=== PATIENT | male | born 1950 | race Caucasian/White ===

== ENCOUNTER → 2024-03-11 09:50 | Outpatient (REF) | payer OTHER, SELFPAY | LOC: HWLAB 09:50 | PROVIDERS: ATTENDING PHYSICIAN Specialist; FAMILY PHYSICIAN Internal Medicine | DX: C61 Malignant neoplasm of prostate (principal); N62 Hypertrophy of breast | CPT/HCPCS: 36415; 84153 ==

== ENCOUNTER → 2024-04-03 13:20 | Outpatient (REF) | payer OTHER, SELFPAY | LOC: HWRAD 13:20 | PROVIDERS: ATTENDING PHYSICIAN Nurse Practitioner Adult Health; FAMILY PHYSICIAN Internal Medicine | DX: Z87.891 Personal history of nicotine dependence (principal) | CPT/HCPCS: 71271 ==

== ENCOUNTER 2024-04-04 13:54 | Emergency (ER) | payer OTHER, SELFPAY ==
[2024-04-04 14:05] VITALS: BP 166/126
[2024-04-04 14:29] LABS: Urine Albumin Trace (Neg - Trace); Urine Bilirubin Negative (Negative); Urine Character Clear (Clear); Urine Color Yellow; Urine Glucose Negative (Negative); Urine Ketone Trace (Negative); Urine Leukocyte Trace (Negative); Urine Nitrite Negative (Negative); Urine Occult Blood 4+ (Negative); Urine Urobilinogen Negative (Neg - 1+)
[2024-04-04 14:36] LABS: % Basophils 0.9 % (0-2); % Eosinophils 1.4 % (0-6); % Immature Granulocytes 0.3 % (0-0.5); % Lymphocytes 26.8 % (20.5-51.1); % Monocytes 7.9 % (1.7-9.3); % Neutrophils 62.7 % (42.2-75.2); Absolute Basophils 0.1 10^3/uL (0-0.2); Absolute Eosinophils 0.1 10^3/uL (0-0.7); Absolute Lymphocytes 2.1 10^3/uL (1.2-3.4); Absolute Monocytes 0.6 10^3/uL (0.1-0.6); Absolute Neutrophils 4.9 10^3/uL (1.4-6.5); Hematocrit 47.5 % (39.0-52.0); Hemoglobin 16.5 g/dL (13.0-18.0); Mean Corp Hgb Conc. 34.7 g/dL (33.0-37.0); Mean Corpuscular Hgb 31.7 pg (27.0-31.0); Mean Corpuscular Volume 91.3 fL (80.0-94.0); Mean Platelet Volume 9.5 fL (7.4-10.4); Nucleated Red Blood Cells % 0 % (-); Platelet Count 254 10^3/uL (130-400); Red Cell Dist. Width 12.6 % (11.5-14.5); White Blood Cell Count 7.9 10^3/uL (4.8-10.8)
[2024-04-04 14:40] LABS: Urine Calcium Oxalate Crystals Present
[2024-04-04 14:41] VITALS: BMI 25.5
[2024-04-04 14:41] LABS: Urine Bacteria Few (Negative); Urine Red Blood Cell 16-20 /HPF (0-2)
--- NOTE | 2024-04-04 14:45 | EDRN ---
Balaji Wu PA in to see pt.
[2024-04-04 14:47] VITALS: BP 189/110
[2024-04-04 14:48] LABS: ALT (SGPT) 29 U/L (0-50); AST (SGOT) 30 U/L (17-59); Albumin 4.9 g/dl (3.5-5.0); Alkaline Phosphatase 83 U/L (38-126); Blood Urea Nitrogen 14 mg/dl (9-20); Calcium 10.1 mg/dl (8.4-10.2); Carbon Dioxide 28 mmol/L (22-30); Chloride 103 mmol/L (98-107); Estimated Creatinine Clearance 62 ml/min; Glucose 111 mg/dl (70-99); Potassium 4.2 mmol/L (3.5-5.1); Sodium 140 mmol/L (135-145); Total Bilirubin 0.7 mg/dl (0.2-1.3); Total Protein 7.5 g/dl (6.3-8.2); eGFR > 60.00
[2024-04-04] MEDS: MORPHINE SULFATE 4 MG IV (14:58)
--- NOTE | 2024-04-04 15:11 | ED.GENMED ---
History of Present Illness
<Chito Wu PA-C - Last Filed: 04/04/24 15:18>
General
Chief Complaint: Abdominal Pain
Source: patient
Time Seen by Provider: 04/04/24 14:36
History of Present Illness
History of Present Illness:
73-year-old male with past medical history of AAA, hypertension, hyperlipidemia, COPD, previous non-small cell lung cancer presenting to the emergency department for evaluation of lower abdominal pain that started approximately an hour and a half
prior to arrival, initially within the right lower quadrant to right flank but now across the lower abdomen and accompanied with lower extremity generalized weakness and mild nausea. Patient states that prior to the symptoms starting today he was
in his usual state of health. Denies any fevers, chills, rigors, vomiting, bowel changes or current urinary symptoms. States the pain does feel similar to previous kidney stone in the past. Did not take anything for his symptoms prior to arrival.
Patient notes that his AAA is monitored with routine ultrasounds with last being within the year.
Past History
<Chito Wu PA-C - Last Filed: 04/04/24 15:18>
Past History
ED Past Medical History: Cancer (Melanoma. Non-small cell CA), GERD (Duodenal ulcer), HTN, Hypercholesterolemia and Other (AAA)
ED Past Surgical History: Other (Carotid endarterectomy. AAA stent. Kidney surgery. Thoracotomy)
Social History
Tobacco: Former smoker (Quit 2 weeks ago)
Alcohol: Occasional
Drug: None
Personal:
Living: with family
Review of Systems
<Chito Wu PA-C - Last Filed: 04/04/24 15:18>
Review of Systems
All Other Systems: ROS reviewed and negative except as documented in HPI and ROS
Phy Exam
<Chito Wu PA-C - Last Filed: 04/04/24 15:18>
Physical Exam
Physical Exam:
GENERAL: Alert , appears quite uncomfortable
HEAD: NCAT
EYE: Clear conjunctiva
NECK: Supple
ENT: o/p clr, mmm.
CARDIAC: Regular rate and rhythm .
LUNGS: Clear breath sounds bilaterally, no acute respiratory distress, no wheezes/rales/rhonchi
ABDOMEN: Soft, diffusely tender across lower abdomen but worse in the right lower abdomen, no r/g, no cvat
NEUROLOGICAL: Alert and oriented
SKIN: Warm and dry, skin intact.
MUSCULOSKELETAL: well perfused.
PSYCH: Normal and appropriate interaction.
Scores
<Chito Wu PA-C - Last Filed: 04/04/24 15:18>
Heart Failure Risk
Heart Failure Risk Score: Not Applicable
Heart Score for Chest Pain Patients
STEMI patient?: Not applicable
Withdrawal Assessment of Alcohol
Withdrawal Assessment Completed?: Not applicable
Course
<Chito Wu PA-C - Last Filed: 04/04/24 15:18>
Orders/Labs/Results
Orders:
Orders
04/04/24 14:17
Complete Blood Count/With Diff Urgent
Comprehensive Metabolic Panel Urgent
Lipase Urgent
Urinalysis Reflex To Culture Urgent
Date Specimen was Collected: 04/04/24
Time Specimen was Collected: 14:08
Urine Microscopic Reflex Cult Urgent
04/04/24 14:51
CT Angio Abd/Pelvis w/wo IV [CT Abd/pelvis Angio W/wo Iv] Urgent
Comment:
Reason For Exam: known AAA, sudden onset abd pain, hematuria
04/04/24 14:52
Morphine Sulfate 4 mg IV NOW STA
04/04/24 15:54
Ketorolac [Toradol] 15 mg IV NOW STA
04/04/24 15:55
Ketorolac [Toradol] 15 mg .ROUTE .ST-MED ONE
Abnormal Lab Results
04/04/24
14:17
MCH 31.7 H pg
(27.0-31.0)
Glucose 111 H mg/dl
(70-99)
Urine Ketones Trace A
(Negative)
Ur Occult Blood Reflex 4+ A
(Negative)
Leukocyte Esterase Rfl Trace A
(Negative)
Urine RBC 16-20 A /HPF
(0-2)
Urine Bacteria (Reflex) Few A
(Negative)
04/04/24 14:17
04/04/24 14:17
Vital Signs
Initial and Last Documented VS:
Initial Vital Signs
Temp Pulse Resp BP Pulse Ox
98.1 F 91 18 166/126 97
04/04/24 14:05 04/04/24 14:05 04/04/24 14:05 04/04/24 14:05 04/04/24 14:05
Last Documented Vital Signs
Temp Pulse Resp BP Pulse Ox
98.1 F 81 18 191/103 98
04/04/24 14:05 04/04/24 15:51 04/04/24 15:51 04/04/24 15:51 04/04/24 15:51
Washing Machine Assembler consulted with Physician
Washing Machine Assembler consulted with physician?: Yes
Name of Physician Consulted: Dustin
<Papo Sterling, DO - Last Filed: 04/04/24 17:31>
Orders/Labs/Results
Orders:
Orders
04/04/24 14:17
Complete Blood Count/With Diff Urgent
Comprehensive Metabolic Panel Urgent
Lipase Urgent
Urinalysis Reflex To Culture Urgent
Date Specimen was Collected: 04/04/24
Time Specimen was Collected: 14:08
Urine Microscopic Reflex Cult Urgent
04/04/24 14:51
CT Angio Abd/Pelvis w/wo IV [CT Abd/pelvis Angio W/wo Iv] Urgent
Comment:
Reason For Exam: known AAA, sudden onset abd pain, hematuria
04/04/24 14:52
Morphine Sulfate 4 mg IV NOW STA
04/04/24 15:54
Ketorolac [Toradol] 15 mg IV NOW STA
04/04/24 15:55
Ketorolac [Toradol] 15 mg .ROUTE .STK-MED ONE
Abnormal Lab Results
04/04/24
14:17
MCH 31.7 H pg
(27.0-31.0)
Glucose 111 H mg/dl
(70-99)
Urine Ketones Trace A
(Negative)
Ur Occult Blood Reflex 4+ A
(Negative)
Leukocyte Esterase Rfl Trace A
(Negative)
Urine RBC 16-20 A /HPF
(0-2)
Urine Bacteria (Reflex) Few A
(Negative)
04/04/24 14:17
04/04/24 14:17
Vital Signs
Initial and Last Documented VS:
Initial Vital Signs
Temp Pulse Resp BP Pulse Ox
98.1 F 91 18 166/126 97
04/04/24 14:05 04/04/24 14:05 04/04/24 14:05 04/04/24 14:05 04/04/24 14:05
Last Documented Vital Signs
Temp Pulse Resp BP Pulse Ox
98.1 F 81 18 191/103 98
04/04/24 14:05 04/04/24 15:51 04/04/24 15:51 04/04/24 15:51 04/04/24 15:51
<Chito Wu PA-C - Last Filed: 04/04/24 15:18>
MDM/Problems Addressed
Differential Diagnosis Includes:
Renal/ureteral colic, AAA complication, appendicitis, urinary tract infection
MDM/Problems Addressed:
73-year-old male presenting emergency department for evaluation of sudden onset right-sided abdominal pain earlier today, now diffuse lower abdomen. Patient appears significantly uncomfortable. He is hypertensive. Complaining of weakness to lower
legs. Given his history of known AAA I do have concern for possible AAA rupture. I reviewed his records and he last had a aortic ultrasound done in August which showed a 3 cm x 3 cm aortic aneurysm with aortic stent graft visualized. Decision
was ultimately made to obtain CT angio of the abdomen and pelvis to evaluate patient's aneurysm. It is certainly possible this could all be related to renal/ureteral colic. Labs have been initiated by nursing staff and urinalysis does show 4+
microscopic hematuria. No current signs of urinary tract infection. Disposition and treatment plan pending.
<Chito Wu PA-C - Last Filed: 04/04/24 15:18>
*Pulse Oximetry
Patient hypoxic: no
Data Reviewed
Review of Other/Old Records Reveals: Labs, Records and Radiology Studies
<Papo Sterling DO - Last Filed: 04/04/24 17:31>
*Radiology
Radiology exam reviewed: preliminary read by ED provider (Dino coleman noted)
*Critical Care Note
Total Time (30-74mins, 75-104mins- exclusive of procedures): Not Applicable
Data Reviewed
Source: patient
Prescriptions/Medications Considered But Not Given:
considered abx but no WBC or signs of infection in UA
ED Attending Note
<Chito Wu PA-C - Last Filed: 04/04/24 15:18>
-
Portions of this chart may have been created with voice recognition software.� Occasional wrong word or��sound alike� substitutions may have occurred due to the inherent limitations of voice recognition software.
<DO Kirby Werner Last Filed: 04/04/24 17:31>
ED Attending Note
Patient seen and examined by attending physician: Yes
I performed the substantive portion of visit, reviewed & personally made and approve the management plan that is documented in note by myself or SHAWN.: Yes
ED Attending Note:
73-year-old male with history of kidney stones presents with acute right-sided pain. Does have a history of vascular pathology as well. CT shows stone with no new vascular pathology. On reassessment patient feels much improved. He is awake and
alert, no respiratory distress. No vomiting. Assessment and plan: Treat with Flomax and outpatient urology follow-up as he is known to Dr. Rosado
Discharge Plan
Departure
Patient Disposition: Home (Routine Discharge)
Date of Disposition: 04/04/24
Time of Disposition: 17:28
Patient with high blood pressure during this ER visit?: Yes
Discharge Problem:
Kidney stone
Instructions: Kidney Stones (DC), BLOOD PRESSURE
Prescriptions:
New
tamsulosin [Flomax] 0.4 mg capsule
0.4 mg PO HS Qty: 20 0RF
No Action
paroxetine HCl 30 MG tablet
15 mg PO BID
atorvastatin 80 MG tablet
80 mg PO QPM Qty: 30 0RF
hydrochlorothiazide 12.5 MG tablet
12.5 mg PO DAILY Qty: 30 0RF
bicalutamide 50 mg Tablet
50 mg PO DAILY
Theragen Tablet
1 tab PO DAILY
aspirin 81 mg Tablet,Delayed Release (Dr/Ec)
81 mg PO DAILY
ascorbic acid (vitamin C) [Vitamin C] 500 mg Tablet
500 mg PO DAILY
nicotine (polacrilex) 4 mg Gum
4 mg BUCCAL Q2HPRN PRN (Reason: smoking )
nicotine 21 mg/24 hr Patch 24 Hour
1 patch TRANSDERMAL DAILY
ibuprofen [Advil] 200 mg Tablet
100 mg PO HS
ibuprofen [Advil] 200 mg Tablet
200 mg PO Q6HPRN PRN (Reason: mild pain)
Referrals:
Yaw Little MD [Family Provider] -
Activity Restrictions/Additional Instructions:
Please see your urologist in the next 3 to 5 days for follow-up and reevaluation. Return immediately for worsening symptoms, fevers, vomiting or any other concerns
Interventions
Interventions:
*Risk Screen - Suicide Last Done: 04/04/24 14:47
*General Assessment Last Done: 04/04/24 14:05
*Neglect/Abuse Screening Last Done: 04/04/24 14:47
ED- Fall Risk Assessment Last Done: 04/04/24 14:47
*ED COVID-19 Vaccine History Last Done: 04/04/24 14:05
QO-Ohvots-Oapsbfgnwm Assessment Last Done: 04/04/24 14:47
Discharge Date and Time
Print Language: AMHARIC
[2024-04-04 15:51] VITALS: BP 191/103
--- NOTE | 2024-04-04 15:57 | EDRN ---
On return from CT scan pt stated pain remained a 04/20 so This RN spoke to Dr. Sterling who received report on pt from Balaji YAO and ordered pt 15 mg of toradol. Pt attempting to use BR at this time.
[2024-04-04 15:58] LABS: Lipase 135 U/L (23-300)
[2024-04-04] MEDS: TORADOL 15 MG IV (16:04)
--- NOTE | 2024-04-04 17:00 | EDRN ---
Pt OOB to BR at this time.
--- NOTE | 2024-04-04 17:25 | EDRN ---
Dr. Sterling in room w/ pt at this time.
[2024-04-04 17:26] VITALS: BP 179/106
[2024-04-04 17:30] VITALS: BP 183/106
== END 2024-04-04 17:46 | disposition home or self-care (01) ==
LOC: EMR 13:54
PROVIDERS: Emergency Medicine; EMERGENCY PHYSICIAN Emergency Medicine; FAMILY PHYSICIAN Internal Medicine
DX: R10.30 Lower abdominal pain, unspecified (principal); R11.0 Nausea; R53.1 Weakness; N20.0 Calculus of kidney; I71.40 Abdominal aortic aneurysm, without rupture, unspecified; I10 Essential (primary) hypertension; E78.00 Pure hypercholesterolemia, unspecified; K21.9 Gastro-esophageal reflux disease without esophagitis; J44.9 Chronic obstructive pulmonary disease, unspecified; Z79.82 Long term (current) use of aspirin; Z85.820 Personal history of malignant melanoma of skin; Z85.118 Personal history of other malignant neoplasm of bronchus and lung; Z87.442 Personal history of urinary calculi; Z87.11 Personal history of peptic ulcer disease; Z87.891 Personal history of nicotine dependence; Z91.030 Bee allergy status
CPT/HCPCS: 99285; 96374; 96375; 74174; 80053; 81003; 81015; 83690; 85025; Q9967

== ENCOUNTER 2024-04-05 18:20 | Inpatient (IN) | payer OTHER, SELFPAY ==
[2024-04-05] VITALS (14 sets, daily range): BP systolic 99–164; BP diastolic 71–103; PULSE 89–102; BMI 26.2
[2024-04-05 13:11] LABS: Glucose - Point of Care 109 mg/dl (70-99)
[2024-04-05 13:45] LABS: % Basophils 0.5 % (0-2); % Eosinophils 1.5 % (0-6); % Immature Granulocytes 0.2 % (0-0.5); % Lymphocytes 19.2 % (20.5-51.1); % Monocytes 8.3 % (1.7-9.3); % Neutrophils 70.3 % (42.2-75.2); Absolute Basophils 0.1 10^3/uL (0-0.2); Absolute Eosinophils 0.2 10^3/uL (0-0.7); Absolute Lymphocytes 2.1 10^3/uL (1.2-3.4); Absolute Monocytes 0.9 10^3/uL (0.1-0.6); Absolute Neutrophils 7.8 10^3/uL (1.4-6.5); Hematocrit 44.7 % (39.0-52.0); Hemoglobin 15.6 g/dL (13.0-18.0); Mean Corp Hgb Conc. 34.9 g/dL (33.0-37.0); Mean Corpuscular Hgb 31.6 pg (27.0-31.0); Mean Corpuscular Volume 90.7 fL (80.0-94.0); Nucleated Red Blood Cells % 0 % (-); Platelet Count 239 10^3/uL (130-400); Red Blood Cell Count 4.93 10^6/uL (4.70-6.10); Red Cell Dist. Width 12.8 % (11.5-14.5); White Blood Cell Count 11.1 10^3/uL (4.8-10.8)
[2024-04-05 13:57] LABS: ALT (SGPT) 24 U/L (0-50); AST (SGOT) 30 U/L (17-59); Albumin 4.3 g/dl (3.5-5.0); Alkaline Phosphatase 78 U/L (38-126); Blood Urea Nitrogen 15 mg/dl (9-20); Calcium 9.6 mg/dl (8.4-10.2); Carbon Dioxide 29 mmol/L (22-30); Chloride 101 mmol/L (98-107); Glucose 104 mg/dl (70-99); Potassium 3.7 mmol/L (3.5-5.1); Sodium 137 mmol/L (135-145); Total Bilirubin 0.9 mg/dl (0.2-1.3); Total Protein 6.7 g/dl (6.3-8.2); eGFR > 60.00
--- NOTE | 2024-04-05 15:22 | ED.GENMED ---
History of Present Illness
<Lebron Hansen PA-C - Last Filed: 04/05/24 17:05>
General
Chief Complaint: Fainting/Passed Out
Source: patient
Exam Limitations: none
Time Seen by Provider: 04/05/24 15:07
History of Present Illness
History of Present Illness:
73-year-old male presents from home after passing out 2 different times today. He was here yesterday diagnosed with a kidney stone. He was treated with Flomax. He took his first dose last evening. He woke up this morning and had breakfast. He
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 She witnessed this. He back up on his own. He laid back down and tried again later and passed out 1
more time. She saw this both times. He denies any preceding chest pain lightheadedness or dizziness. No injury sustained from the falls. He has a history of AAA that is being monitored. He denies abdominal pain leg swelling or calf pain. He
denies any flank pain or residual kidney stone discomfort.
Past History
<Lebron Hansen PA-C - Last Filed: 04/05/24 17:05>
Past History
ED Past Medical History: Cancer (Melanoma. Non-small cell CA), GERD (Duodenal ulcer), HTN, Hypercholesterolemia and Other (AAA)
ED Past Surgical History: Other (Carotid endarterectomy. AAA stent. Kidney surgery. Thoracotomy)
Social History
Tobacco: Former smoker (Quit 2 weeks ago)
Alcohol: Occasional
Drug: None
Personal:
Living: with family
Phy Exam
<Lebron Hansen PA-C - Last Filed: 04/05/24 17:05>
Physical Exam
Physical Exam:
General: Well-appearing male no acute respiratory distress
HEENT: Normocephalic atraumatic
Heart: Regular rate and rhythm no murmurs
Lungs: Clear no wheeze
Abdomen is soft nontender nondistended no guarding or rebound normal bowel
Course
<Lebron Hansen PA-C - Last Filed: 04/05/24 17:05>
Orders/Labs/Results
Orders:
Orders
04/05/24 Breakfast
Regular
At Your Request: Full Participation
Does patient need a safe tray?: No
04/05/24 12:52
ECG [Electrocardiogram (*1)] Urgent
Reason for Study: Syncope
EKG- Treatment ONCE
04/05/24 13:09
CMP [Comprehensive Metabolic Panel] Urgent
Complete Blood Count/With Diff Urgent
04/05/24 15:20
Cardiac Monitoring- Treatment ONCE
Orthostatic VS- Treatment ONCE
0.9% Sodium Chloride 1000 ml [Nss] 1,000 ml IV BOLUS
04/05/24 16:29
Electrocardiogram (*1) Urgent
Reason for Study: Chest Pain
EKG- Treatment ONCE
04/05/24 16:56
Troponin I Urgent
04/05/24 17:15
CT Head W/o Iv Contrast Urgent
Comment:
Reason For Exam: syncope
04/05/24 17:55
Admit/Transfer Patient As Directed
Co-Sign Provider:
Level of Care: Inpatient admission
Assign to:: Telemetry
Physician / Group: Juan Pablo
Diagnosis: Syncope, Obstructing Kidney Stone
Reason for Telemetry: Syncope
Date to Stop Telemetry: 04/07/24
Time to Stop Telemetry: 11:00
Reason for Hospitalization: IVFs, Urology Consult
Expected length of stay greater than two midnights?: Yes
ELOS- Estimated Length of Stay in days: 3
I certify the patient meets the requirements for IP care: Yes
04/05/24 18:02
PRN Pain Medication Management As Directed
May give lesser potent ordered pain med per pt: Yes
preference::
Protocol:: Medication orders for pain may be administered in a
manner that supports deferring to patient preference
when the pt is:
- Requesting an ordered lesser potent pain medication.
Least to most potent pain medications are defined
as: acetaminophen < NSAID < tramadol < opioids
(morphine, oxycodone, hydromorphone).
- Requesting a lesser dose of the same medication IF
ORDERED.
- Requesting a less intrusive route of administration
if both routes are prescribed by the provider (PO <
IV).
04/05/24 18:04
Code Status As Directed
Resuscitation Status: Full Code
04/05/24 19:07
0.9% Sodium Chloride 1000 ml [Nss] 1,000 ml IV 88 mls/hr
Acetaminophen [Tylenol] 650 mg PO Q4HPRN PRN
Atorvastatin [Lipitor] 80 mg PO QPM
04/05/24 19:07
UROLOGY CONSULT Routine
Consulting Provider: Toni Browning
Was physician already notified: Yes
Activity As Directed
Activity Level: Out of Bed- Chair
I&O [Intake/ Output] As Directed
Frequency: q12h
Orthostatic Vital Signs As Directed
Orthostatic VS Frequency: Daily
Pneumatic Compression Sleeves As Directed
Type: Knee high
Strain Urine As Directed
Teds [Anti-embolism (GONZÁLEZ) Hose] As Directed
Type: Knee high
Vital Signs As Directed
Frequency: Per unit guidelines
Ot Eval And Treat Routine
Pt Eval And Treat Routine
Activity Level: Out of Bed- Ad Ghzaal
With Assistance
DX Deep Vein Thrombosis Video Routine
04/05/24 20:00
Paroxetine [Paxil] 15 mg PO BID
04/06/24 07:21
Basic Metabolic Panel IN AM
Complete Blood Count/No Diff IN AM
04/06/24 08:00
Aspirin Low Dose EC [Aspir Low (Enteric Coated)] 81 mg PO DAILY
Bicalutamide [Casodex] 50 mg PO DAILY
Nicotine [Nicoderm Transdermal] 21 mg TRANSDERM DAILY
04/07/24 11:00
DC Protocol for Telemetry ONCE
Abnormal Lab Results
04/05/24
13:09
WBC 11.1 H 10^3/uL
(4.8-10.8)
MCH 31.6 H pg
(27.0-31.0)
Absolute Neuts (auto) 7.8 H 10^3/uL
(1.4-6.5)
Absolute Monos (auto) 0.9 H 10^3/uL
(0.1-0.6)
Lymphocytes % 19.2 L %
(20.5-51.1)
Glucose 104 H mg/dl
(70-99)
POC Glucose 109 H mg/dl
(70-99)
04/05/24 13:09
04/05/24 13:09
Vital Signs
Initial and Last Documented VS:
Initial Vital Signs
Temp Pulse Resp BP Pulse Ox
98.4 F 111 18 113/80 97
04/05/24 12:57 04/05/24 12:57 04/05/24 12:57 04/05/24 12:57 04/05/24 12:57
Last Documented Vital Signs
Temp Pulse Resp BP Pulse Ox
97.8 F 83 16 158/102 95
04/06/24 15:19 04/06/24 15:19 04/06/24 15:19 04/06/24 15:19 04/06/24 15:19
<Martha Lynn MD - Last Filed: 04/06/24 18:26>
Orders/Labs/Results
Orders:
Orders
04/05/24 Breakfast
Regular
At Your Request: Full Participation
Does patient need a safe tray?: No
04/05/24 12:52
ECG [Electrocardiogram (*1)] Urgent
Reason for Study: Syncope
EKG- Treatment ONCE
04/05/24 13:09
CMP [Comprehensive Metabolic Panel] Urgent
Complete Blood Count/With Diff Urgent
04/05/24 15:20
Cardiac Monitoring- Treatment ONCE
Orthostatic VS- Treatment ONCE
0.9% Sodium Chloride 1000 ml [Nss] 1,000 ml IV BOLUS
04/05/24 16:29
Electrocardiogram (*1) Urgent
Reason for Study: Chest Pain
EKG- Treatment ONCE
04/05/24 16:56
Troponin I Urgent
04/05/24 17:15
CT Head W/o Iv Contrast Urgent
Comment:
Reason For Exam: syncope
04/05/24 17:55
Admit/Transfer Patient As Directed
Co-Sign Provider:
Level of Care: Inpatient admission
Assign to:: Telemetry
Physician / Group: Juan Pablo
Diagnosis: Syncope, Obstructing Kidney Stone
Reason for Telemetry: Syncope
Date to Stop Telemetry: 04/07/24
Time to Stop Telemetry: 11:00
Reason for Hospitalization: IVFs, Urology Consult
Expected length of stay greater than two midnights?: Yes
ELOS- Estimated Length of Stay in days: 3
I certify the patient meets the requirements for IP care: Yes
04/05/24 18:02
PRN Pain Medication Management As Directed
May give lesser potent ordered pain med per pt: Yes
preference::
Protocol:: Medication orders for pain may be administered in a
manner that supports deferring to patient preference
when the pt is:
- Requesting an ordered lesser potent pain medication.
Least to most potent pain medications are defined
as: acetaminophen < NSAID < tramadol < opioids
(morphine, oxycodone, hydromorphone).
- Requesting a lesser dose of the same medication IF
ORDERED.
- Requesting a less intrusive route of administration
if both routes are prescribed by the provider (PO <
IV).
04/05/24 18:04
Code Status As Directed
Resuscitation Status: Full Code
04/05/24 19:07
0.9% Sodium Chloride 1000 ml [Nss] 1,000 ml IV 88 mls/hr
Acetaminophen [Tylenol] 650 mg PO Q4HPRN PRN
Atorvastatin [Lipitor] 80 mg PO QPM
04/05/24 19:07
UROLOGY CONSULT Routine
Consulting Provider: Toin Browning
Was physician already notified: Yes
Activity As Directed
Activity Level: Out of Bed- Chair
I&O [Intake/ Output] As Directed
Frequency: q12h
Orthostatic Vital Signs As Directed
Orthostatic VS Frequency: Daily
Pneumatic Compression Sleeves As Directed
Type: Knee high
Strain Urine As Directed
Teds [Anti-embolism (GONZÁLEZ) Hose] As Directed
Type: Knee high
Vital Signs As Directed
Frequency: Per unit guidelines
Ot Eval And Treat Routine
Pt Eval And Treat Routine
Activity Level: Out of Bed- Ad Ghazal
With Assistance
DX Deep Vein Thrombosis Video Routine
04/05/24 20:00
Paroxetine [Paxil] 15 mg PO BID
04/06/24 07:21
Basic Metabolic Panel IN AM
Complete Blood Count/No Diff IN AM
04/06/24 08:00
Aspirin Low Dose EC [Aspir Low (Enteric Coated)] 81 mg PO DAILY
Bicalutamide [Casodex] 50 mg PO DAILY
Nicotine [Nicoderm Transdermal] 21 mg TRANSDERM DAILY
04/07/24 11:00
DC Protocol for Telemetry ONCE
Abnormal Lab Results
04/05/24
13:09
WBC 11.1 H 10^3/uL
(4.8-10.8)
MCH 31.6 H pg
(27.0-31.0)
Absolute Neuts (auto) 7.8 H 10^3/uL
(1.4-6.5)
Absolute Monos (auto) 0.9 H 10^3/uL
(0.1-0.6)
Lymphocytes % 19.2 L %
(20.5-51.1)
Glucose 104 H mg/dl
(70-99)
POC Glucose 109 H mg/dl
(70-99)
04/05/24 13:09
04/05/24 13:09
Vital Signs
Initial and Last Documented VS:
Initial Vital Signs
Temp Pulse Resp BP Pulse Ox
98.4 F 111 18 113/80 97
04/05/24 12:57 04/05/24 12:57 04/05/24 12:57 04/05/24 12:57 04/05/24 12:57
Last Documented Vital Signs
Temp Pulse Resp BP Pulse Ox
97.8 F 83 16 158/102 95
04/06/24 15:19 04/06/24 15:19 04/06/24 15:19 04/06/24 15:19 04/06/24 15:19
<Lebron Hansen PA-C - Last Filed: 04/05/24 17:05>
MDM/Problems Addressed
Differential Diagnosis Includes:
Syncope. Consider arrhythmia versus anemia versus electrolyte abnormality versus side effect of recent Flomax administration. Will check labs EKG and placed on cardiac surgeon. Orthostatic vital signs pending.
<Lebron Hansen PA-C - Last Filed: 04/05/24 17:05>
*Critical Care Note
Total Time (30-74mins, 75-104mins- exclusive of procedures): Not Applicable
<Lebron Hansen PA-C - Last Filed: 04/05/24 17:05>
Update Note
Update Note:
Patient reevaluated. He did develop chest discomfort while he was here. Troponin is ordered. EKG shows sinus rhythm. Patient was orthostatic upon testing however concern for his 2 episodes today are to sudden drop attacks without any preceding
symptoms. There was no preceding lightheadedness or dizziness. He was orthostatic by objective evidence but had no subjective symptoms when we stood him up to his blood pressure. Discussed with emergency room attending. Will keep in hospital for
syncope workup
ED Attending Note
<Lebron Hansen PA-C - Last Filed: 04/05/24 17:05>
-
Portions of this chart may have been created with voice recognition software.� Occasional wrong word or��sound alike� substitutions may have occurred due to the inherent limitations of voice recognition software.
<Martha Lynn MD - Last Filed: 04/06/24 18:26>
ED Attending Note
Patient seen and examined by attending physician: Yes
ED Attending Note:
73-year-old male recently discharged with a kidney stone started on Flomax presents with 2 episodes of syncope today. With both episodes, he was standing speaking to his staff mechanical engineer who is also an RN and was witnessed to fall to the ground with
loss of consciousness that was very short-lived. No post syncopal confusion, incontinence, tongue biting, or other abnormalities. Patient denies any symptoms preceding this and says 'I just dropped'. He denies dizziness, lightheadedness,
numbness, tingling, chest pain, dyspnea, palpitations, or other complaints. On exam, patient neurologically intact, normal gait, well-appearing. Curious that his symptoms that could be concerning for arrhythmia or central neurological event.
Unlikely seizure especially given lack of postevent symptoms. Will check head CT and admit for observation and telemetry monitoring.
Discharge Plan
Departure
Patient Disposition: Admit
Date of Disposition: 04/05/24
Time of Disposition: 17:05
Admit to: Telemetry
Presentation/result/management discussed w/ accepting MD/DO: Hospitalist
Discharge Problem:
Syncope
Interventions
Interventions:
*Risk Screen - Suicide Last Done: 04/05/24 19:46
*General Assessment Last Done: 04/05/24 15:20
*Neglect/Abuse Screening Last Done: 04/05/24 12:57
ED- Fall Risk Assessment Last Done: 04/05/24 15:20
*ED COVID-19 Vaccine History Last Done: 04/05/24 19:46
*Nursing Disposition Last Done: 04/05/24 19:15
ED- Cardiac Assessment Last Done: 04/05/24 15:20
ED- Neurological Assessment Last Done: 04/05/24 15:20
Discharge Date and Time
Discharge Date/Time: 04/05/24 19:15
[2024-04-05] MEDS: NSS 1000 IV ×2 (15:37→19:34)
[2024-04-05 17:29] LABS: Troponin I < 0.012 ng/ml
--- NOTE | 2024-04-05 18:16 | HPS.HSE ---
Addendum entered and electronically signed by Nikhil Almeida MD 04/05/24 18:26:
I saw and examined the patient.
The RECYCLING OPERATIONS MANAGER or PA's note was reviewed and I agree with the note.
Comment:
73 years old male who experienced 2 syncopal episodes, each lasted for a few seconds with no confusion, seizure activity or urinary incontinence. Patient presented to the emergency room yesterday for renal colic was given Flomax. Patient was
noticeably having postural hypotension in the ER. Patient denied nausea, diarrhea or vomiting. He takes diuretic for blood pressure management. No known heart disease. No chest pain. Troponins negative. EKG no acute ischemic changes.
Physical Exam
General: Comfortable and Conversant
HEENT: Anicteric and Moist mucous membranes
Respiratory: Clear and Non Labored Respirations
Cardiac: S1/S2 and Regular Rhythm
GI: Soft and Non Tender
Rectal: No rectal bleeding
Musculoskeletal: No Clubbing, No Cyanosis and No Edema
Skin: Warm and Dry
Neuro: Awake, Alert, Oriented and Nonfocal/grossly intact
Psych: Calm
Syncope likely secondary to Orthostatic Hypotension differential diagnosis includes vasovagal/cardiac arrhythmia. Doubt seizure activity due to lack of confusion, seizure activity.
Patient reported that each syncopal episode lasted few seconds and he woke up and was completely coherent and lucid.
-Discontinue Flomax
-Give IVFs overnight
-Recheck orthostatic VS in AM
-Monitor on Telemetry
-No history of cardiac disease. Negative troponin. EKG, sinus rhythm with no acute ischemic changes.
Obstructing Kidney Stone
Normal renal function. No renal colic at present time.
Patient denies hematuria. History of prostate cancer.
Follow-up with urology recommendation
-Strain Urine
Hx Left Parietal CVA s/p Left Carotid Endarterectomy
-Continue Aspirin
Essential Hypertension
-Hold HCTZ
Hyperlipidemia
-Continue atorvastatin
Depression
-Continue Paxil
Prostate CA
-Continue bicalutamide
Hx AAA Endovascular Repair
Hx NSCLC s/p LLL Wedge Resection
DVT proph:SCDs
Code Status: Full Code
Total time spent to see the patient, examine the patient on the floor, review data and lab results, discuss treatment plan with patient, ER doctor, nursing staff around 75 minutes
Original Note:
Family Physician
-
Family Physician: Yaw Little
Chief Complaint
-
Syncope
History of Present Illness
Patient is a 73 y/o male with a PMH of CVA, HTN, AAA, COPD, lung cancer and prostate cancer who reports to the ED after 2 syncopal episodes. Patient was just at the hospital yesterday for a kidney stone and was prescribed Flomax. He states that he
took the Flomax last night before bed. He woke up this morning and had breakfast without any issues. He went back to bed and when his cleaning lady arrived after going downstairs to talk to her, he passed out. He states he loss consciousness for
10-15 seconds. He felt fine, but went back to bed. Later when he went to speak with her again he passed out for a second time. He states that the length of time between getting out of bed and down the stairs was less than a minute. He denies any
dizziness/lightheadedness, chest pain, palpitations, shortness of breath, vision changes, or calf pain. He denies hitting his head. He denies any history of syncope, arrhythmias, orthostatic hypotension, or seizures. He denies any recent medication
changes except the Flomax. He denies any flank or abdominal pain.
Medical History
Past Medical History
Past Medical History: Reports Other
Additional Past Medical History:
Left Parietal CVA
Essential Hypertension
Hyperlipemia
COPD/Emphysema
Depression
GERD/PUD
BPH
AAA
Non-Small Cell Lung A
Prostate CA
Past Surgical History: Reports Other
Additional Past Surgical History:
Left Lower Lobe Wedge Resection
AAA Endovascular Repair
Left Carotid Endarterectomy
Social History
Tobacco: Former Smoker (Recently quit about 2 weeks ago)
Family History
Family History: Not pertinent
Allergies / Home Medications
Allergies reflects when Allergies were last updated in [facility].
Home Medications with original date entered in [facility]
Allergy/Medication List:
Allergies
Allergy/AdvReac Type Severity Reaction Status Date / Time
bee venom protein (honey bee) Allergy Unknown Verified 04/05/24 13:02
Home Medications
paroxetine HCl 30 mg tablet 15 mg PO BID 10/20/15
atorvastatin 80 mg tablet 80 mg PO QPM ##30 12/21/18
hydrochlorothiazide 12.5 mg tablet 12.5 mg PO DAILY ##30 12/21/18
ascorbic acid (vitamin C) 500 mg tablet (Vitamin C) 500 mg PO DAILY 04/04/24
aspirin 81 mg tablet,delayed release 81 mg PO DAILY 04/04/24
bicalutamide 50 mg tablet 50 mg PO DAILY 04/04/24
ibuprofen 200 mg tablet (Advil) 100 mg PO HS 04/04/24
ibuprofen 200 mg tablet (Advil) 200 mg PO Q6HPRN PRN mild pain 04/04/24
nicotine (polacrilex) 4 mg gum 4 mg buccal Q2HPRN PRN smoking 04/04/24
nicotine 21 mg/24 hr daily transdermal patch 1 patch transdermal DAILY 04/04/24
tamsulosin 0.4 mg capsule (Flomax) 0.4 mg PO HS #20 caps 04/04/24
therapeutic multivitamin 1 tab PO DAILY 04/04/24
Review of Systems
-
A 12 point ROS was completed and negative except as noted: Yes
Constitutional: Denies Fever or Chills
Respiratory: Denies Cough or Trouble Breathing
Cardiac: Reports Syncope; Denies Chest Pain or Palpitations
Physical Exam
Vital Signs
Vital Signs
Temp Pulse Resp BP Pulse Ox
98.4 F 84 14 135/101 97
04/05/24 12:57 04/05/24 17:00 04/05/24 17:00 04/05/24 17:00 04/05/24 17:15
Physical Exam
General: Comfortable and Conversant
HEENT: Anicteric and Moist mucous membranes
Respiratory: Clear and Non Labored Respirations
Cardiac: S1/S2 and Regular Rhythm
GI: Soft and Non Tender
Rectal: Deferred by Provider
Musculoskeletal: No Clubbing, No Cyanosis and No Edema
Skin: Warm and Dry
Neuro: Awake, Alert, Oriented and Nonfocal/grossly intact
Psych: Calm
Laboratory Results
-
04/05/24 13:09
04/05/24 13:09
Laboratory Results
Total Bilirubin 0.9 mg/dl (0.2-1.3) 04/05/24 13:09
AST 30 U/L (17-59) 04/05/24 13:09
ALT 24 U/L (0-50) 04/05/24 13:09
Alkaline Phosphatase 78 U/L (38-126) 04/05/24 13:09
Troponin I < 0.012 ng/ml 04/05/24 16:56
Data Reviewed
-
Lab Data: Labs Reviewed by me
Impression/Plan
-
Syncope likely secondary to Orthostatic Hypotension
-Discontinue Flomax
-Give IVFs overnight
-Recheck orthostatic VS in AM
-Monitor on Telemetry
Obstructing Kidney Stone
-Consult Urology
-Strain Urine
Hx Left Parietal CVA s/p Left Carotid Endarterectomy
-Continue Aspirin
Essential Hypertension
-Hold HCTZ
Hyperlipidemia
-Continue atorvastatin
Depression
-Continue Paxil
Prostate CA
-Continue bicalutamide
Hx AAA Endovascular Repair
Hx NSCLC s/p LLL Wedge Resection
DVT proph:SCDs
Code Status: Full Code
--- NOTE | 2024-04-05 19:30 | PTCARENOTE ---
Pt. admitted through E.D., AAO x 3, SA/ST on monitor, skin intact, call hdz within reach.
[2024-04-06] VITALS (9 sets, daily range): BP systolic 129–169; BP diastolic 83–105; PULSE 77–102; O2SAT 96–97
[2024-04-06] MEDS: NSS 1000 IV (04:48)
[2024-04-06] MEDS: PAXIL 15 MG PO (08:21)
[2024-04-06] MEDS: ASPIR LOW (ENTERIC COATED) 81 MG PO (08:21)
[2024-04-06] MEDS: ORETIC 12.5 MG PO (08:21)
[2024-04-06] MEDS: LIPITOR 80 MG PO (08:21)
[2024-04-06] MEDS: CASODEX 50 MG PO (08:22)
[2024-04-06] MEDS: NICODERM TRANSDERMAL 21 MG TRANSDERM (08:23)
--- NOTE | 2024-04-06 08:31 | W.PN.HOSP.TC ---
Today's Communication/Plan
-
Repeat ortho vital tonight
Resume HCTZ
Add PRN hydralazine
Stop IVF
PT/OT
Assessment / Plan
Assessment / Plan
73 years old male who experienced 2 syncopal episodes, each lasted for a few seconds with no confusion, seizure activity or urinary incontinence. Patient presented to the emergency room yesterday for renal colic was given Flomax. Patient was
noticeably having postural hypotension in the ER. Patient denied nausea, diarrhea or vomiting. He takes diuretic for blood pressure management. No known heart disease. No chest pain. Troponins negative. EKG no acute ischemic changes.
Physical Exam
General: Comfortable and Conversant
HEENT: Anicteric and Moist mucous membranes
Respiratory: Clear and Non Labored Respirations
Cardiac: S1/S2 and Regular Rhythm
GI: Soft and Non Tender
Rectal: No rectal bleeding
Musculoskeletal: No Clubbing, No Cyanosis and No Edema
Skin: Warm and Dry
Neuro: Awake, Alert, Oriented and Nonfocal/grossly intact
Psych: Calm
Syncope likely secondary to Orthostatic Hypotension , noted in ER
DDX includes vasovagal/cardiac arrhythmia. Doubt seizure activity due to lack of confusion, seizure activity.
Patient reported that each syncopal episode lasted few seconds and he woke up and was completely coherent and lucid.
-Discontinue Flomax
-Given IVFs , can stop now
-Recheck orthostatic VS in AM
-Monitor on Telemetry, no arrhythmias.
-No history of cardiac disease. Negative troponin. EKG, sinus rhythm with no acute ischemic changes.
Obstructing Kidney Stone
Normal renal function. No renal colic at present time.
Patient denies hematuria. History of prostate cancer.
Follow-up with urology recommendation
-Strain Urine
Hx Left Parietal CVA s/p Left Carotid Endarterectomy
-Continue Aspirin
Essential Hypertension
-BP is better and SBP around 156 with no orthostatic hypotension, resume HCTZ
Add PRN hydralazine
Hyperlipidemia
-Continue atorvastatin
Depression
-Continue Paxil
Prostate CA
-Continue bicalutamide
Hx AAA Endovascular Repair
Hx NSCLC s/p LLL Wedge Resection
DVT proph:SCDs
Code Status: Full Code
Total time spent to see the patient, examine the patient on the floor, review data and lab results, discuss treatment plan with patient, nursing staff around 55 minutes
Anticipated Discharge: Within 24 hours
Subjective/Interval History
-
Date of Service: April 06, 2024
He feels better
No chest pain
No dizziness upon standing
No sob
Objective Data
-
Labs:
Laboratory Results
04/06/24
07:21
WBC Pending
Hgb Pending
Hct Pending
Plt Count Pending
Sodium Pending
Potassium Pending
Chloride Pending
Carbon Dioxide Pending
BUN Pending
Creatinine Pending
Glucose Pending
Calcium Pending
Vital Signs:
Vital Signs
Temp Pulse Resp BP Pulse Ox
97.4 F 77 20 140/91 96
04/06/24 03:00 04/06/24 03:00 04/06/24 03:00 04/06/24 03:00 04/06/24 03:00
I&O
04/05/24 04/06/24 04/07/24
06:59 06:59 06:59
Intake Total 1240 / 1240
Output Total 450 / 450
Balance 790 / 790
[2024-04-06 09:05] LABS: Hematocrit 41.5 % (39.0-52.0); Hemoglobin 14.3 g/dL (13.0-18.0); Mean Corp Hgb Conc. 34.5 g/dL (33.0-37.0); Mean Corpuscular Hgb 31.2 pg (27.0-31.0); Mean Corpuscular Volume 90.4 fL (80.0-94.0); Mean Platelet Volume 10.2 fL (7.4-10.4); Platelet Count 228 10^3/uL (130-400); Red Blood Cell Count 4.59 10^6/uL (4.70-6.10); Red Cell Dist. Width 12.6 % (11.5-14.5); White Blood Cell Count 8.4 10^3/uL (4.8-10.8)
[2024-04-06 09:34] LABS: Blood Urea Nitrogen 11 mg/dl (9-20); Calcium 8.9 mg/dl (8.4-10.2); Carbon Dioxide 28 mmol/L (22-30); Chloride 105 mmol/L (98-107); Estimated Creatinine Clearance 69 ml/min; Glucose 82 mg/dl (70-99); Potassium 4.5 mmol/L (3.5-5.1); Sodium 137 mmol/L (135-145); eGFR > 60.00
--- NOTE | 2024-04-06 10:57 | W.PN.URO.CBU ---
Today's Communication / Plan
-
No urologic intervention indicated at this time
Patient has not recovered stone
Will need follow up imaging as outpatient if stone is never recovered
Assessment / Plan
-
Partially obstructing 4mm right UVJ stone as diagnosed by CT scan 04/04/24
Small bilateral nephroliths
Bilateral renal cysts
Diagnosis
-
Date of Service: April 06, 2024
-
Patient Diagnosis:
Partially obstructing 4 mm right UVJ stone
Bilateral nephrolithiasis
Bilateral renal cysts
---
Patient developed syncope while taking tamsulosin to enhance chances of stone passage
Subjective
-
No right CVAT
No dysuria
No gross hematuria
No urine frequency
Objective
-
Vital Signs
Temp Pulse Resp BP Pulse Ox
97.6 F 80 16 156/105 95
04/06/24 07:25 04/06/24 07:25 04/06/24 07:25 04/06/24 07:25 04/06/24 07:25
Intake and Output
04/05/24 04/06/24 04/07/24
06:59 06:59 06:59
Intake Total 1240 / 1240
Output Total 450 / 450
Balance 790 / 790
Intake:
Oral fluids 240 / 240
IV fluids (Total) 1000 / 1000
Output:
Urine, Voided 450 / 450
Other:
Number of approximated MODERATE 2
amounts of urine
Laboratory Results
04/06/24 07:21
04/06/24 07:21
Review of Systems
-
Constitutional: No Symptoms
Respiratory: No Symptoms
Cardiac: No Symptoms
Abdomen/GI: No Symptoms
: No Symptoms
Physical Exam
-
General - well developed, well nourished, no acute distress
Abdomen - soft, non-tender, no CVAT
Genitalia - normal
Counseling
-
Cleared for discharge from standpoint
--- NOTE | 2024-04-06 11:44 | CM ---
Patient seen bedside, initial assessment completed. Patient resides with his in a multiple story home, no steps to enter. Patient denies the use of DME, denies VN or SNF history. Patient confirms PCP Yaw Little, [facility] in
[place], confirms [facility] through [facility]. Patient denies food, housing/utility, transportation insecurities at home. CM will continue to follow for all discharge planning needs.
Plan; home no needs.
[2024-04-06] MEDS: ROXICODONE 5 MG PO ×2 (18:37→22:53)
[2024-04-07] VITALS (7 sets, daily range): BP systolic 98–160; BP diastolic 71–102; PULSE 86–115
[2024-04-07] MEDS: TYLENOL 650 MG PO (01:14)
--- NOTE | 2024-04-07 08:35 | W.PN.HOSP.TC ---
Today's Communication/Plan
-
Compression stocking/ Tubigrip
Echo in am
Serum cortisol in AM
Assessment / Plan
Assessment / Plan
73 years old male who experienced 2 syncopal episodes, each lasted for a few seconds with no confusion, seizure activity or urinary incontinence. Patient presented to the emergency room yesterday for renal colic was given Flomax. Patient was
noticeably having postural hypotension in the ER. Patient denied nausea, diarrhea or vomiting. He takes diuretic for blood pressure management. No known heart disease. No chest pain. Troponins negative. EKG no acute ischemic changes.
Physical Exam
General: Comfortable and Conversant
HEENT: Anicteric and Moist mucous membranes
Respiratory: Clear and Non Labored Respirations
Cardiac: S1/S2 and Regular Rhythm
GI: Soft and Non Tender
Rectal: No rectal bleeding
Musculoskeletal: No Clubbing, No Cyanosis and No Edema
Skin: Warm and Dry
Neuro: Awake, Alert, Oriented and Nonfocal/grossly intact
Psych: Calm
Syncope likely secondary to Orthostatic Hypotension , noted in hospital
DDX includes vasovagal/cardiac arrhythmia. Doubt seizure activity due to lack of confusion, seizure activity.
Telemetry > 48 hours no arrhythmias, some Premature Atrial beats ( was reviewed with stretch press operator on tele).
Patient reported that each syncopal episode lasted few seconds and he woke up and was completely coherent and lucid.
-Discontinue Flomax
-Given IVFs .
-Order echo , use compression stockings.
-Monitor on Telemetry, no arrhythmias.
-No history of cardiac disease. Negative troponin. EKG, sinus rhythm with no acute ischemic changes.
Obstructing Kidney Stone
Normal renal function. No renal colic at present time.
Patient denies hematuria. History of prostate cancer.
Follow-up with urology recommendation
-Strain Urine
Hx Left Parietal CVA s/p Left Carotid Endarterectomy
-Continue Aspirin
Essential Hypertension
- Resumed low dose HCTZ
Add PRN hydralazine
Hyperlipidemia
-Continue atorvastatin
Depression
-Continue Paxil
Prostate CA
-Continue bicalutamide
Hx AAA Endovascular Repair
Hx NSCLC s/p LLL Wedge Resection
DVT proph:SCDs, add SQ heparin
Code Status: Full Code
Total time spent to see the patient, examine the patient on the floor, review data and lab results, discuss treatment plan with patient, nursing staff around 57 minutes
Anticipated Discharge: Within 24 hours
Subjective/Interval History
-
Date of Service: April 07, 2024
He denies pain or sob
Objective Data
-
Vital Signs:
Vital Signs
Temp Pulse Resp BP Pulse Ox
97.5 F 73 20 160/102 96
04/07/24 07:25 04/07/24 07:25 04/07/24 07:25 04/07/24 07:25 04/07/24 07:25
I&O
04/06/24 04/07/24 04/08/24
06:59 06:59 06:59
Intake Total 1240 / 1240 720 / 720
Output Total 450 / 450
Balance 790 / 790 720 / 720
[2024-04-07] MEDS: ASPIR LOW (ENTERIC COATED) 81 MG PO (08:45)
[2024-04-07] MEDS: CASODEX 50 MG PO (08:45)
[2024-04-07] MEDS: ORETIC 12.5 MG PO (08:45)
[2024-04-07] MEDS: NICODERM TRANSDERMAL 21 MG TRANSDERM (08:45)
[2024-04-07] MEDS: LIPITOR 80 MG PO (08:45)
[2024-04-07] MEDS: PAXIL 15 MG PO (08:46)
--- NOTE | 2024-04-07 11:26 | W.PN.URO.CBU ---
Today's Communication / Plan
-
Will re-image as outpatient should patient not recover a stone
Assessment / Plan
-
Partially obstructing 4mm right UVJ stone as diagnosed by CT scan 04/04/24
Small bilateral nephroliths
Bilateral renal cysts
Diagnosis
-
Date of Service: April 07, 2024
-
Patient Diagnosis:
Partially obstructing 4 mm right UVJ stone
Bilateral nephrolithiasis
Bilateral renal cysts
---
Patient developed syncope while taking tamsulosin to enhance chances of stone passage
Subjective
-
Remains comfortable
No right CVAT
No dysuria, gross hematuria or frequency
Objective
-
Vital Signs
Temp Pulse Resp BP Pulse Ox
97.7 F 89 18 129/80 97
04/07/24 11:20 04/07/24 11:20 04/07/24 11:20 04/07/24 11:20 04/07/24 11:20
Intake and Output
04/06/24 04/07/24 04/08/24
06:59 06:59 06:59
Intake Total 1240 / 1240 720 / 720
Output Total 450 / 450
Balance 790 / 790 720 / 720
Intake:
Oral fluids 240 / 240 720 / 720
IV fluids (Total) 1000 / 1000
Output:
Urine, Voided 450 / 450
Other:
Number of approximated MODERATE 2 3
amounts of urine
Laboratory Results
04/06/24 07:21
04/06/24 07:21
Review of Systems
-
Constitutional: No Symptoms
Respiratory: No Symptoms
Abdomen/GI: No Symptoms
: No Symptoms
Neurological: No Symptoms
Physical Exam
-
General - well developed, well nourished, no acute distress
Abdomen - soft, non-tender, no CVAT
Genitalia - normal
--- NOTE | 2024-04-07 14:34 | CM ---
Patient seen bedside with , reports no needs to CM at this time. No skilled PT/OT need. IMM reviewed, signed, placed in chart. CM will continue to follow for all discharge planning needs.
Plan; home no needs when stable.
[2024-04-08] VITALS (8 sets, daily range): BP systolic 85–153; BP diastolic 56–100; PULSE 81–131; O2SAT 100
--- NOTE | 2024-04-08 07:42 | W.PN.HOSP.TC ---
Today's Communication/Plan
-
Await echo
PT/OT
Fabián Stockings
Abdominal Binder
Hold HCTZ due to continued orthostatic hypotension
Assessment / Plan
Assessment / Plan
73 years old male who experienced 2 syncopal episodes, each lasted for a few seconds with no confusion, seizure activity or urinary incontinence. Patient presented to the emergency room recently for renal colic was given Flomax. Patient was
noticeably having postural hypotension in the ER. Patient denied nausea, diarrhea or vomiting. He takes diuretic for blood pressure management. No known heart disease. No chest pain. Troponins negative. EKG no acute ischemic changes.
Physical Exam
Physical Exam was not performed as patient was not present in his room at the time of attempted patient encounter.
73 male with orthostatic hypotension/syncope. Had IVF. Tubigrip B/L are ordered. No arrhythmias on tele. Plan for echo Monday, likely dc. Serum cortione in am. He saw Nicolás in 2019, he will make an appointment. Called but no answer.
Syncope likely secondary to Orthostatic Hypotension , noted in hospital
DDX includes vasovagal/cardiac arrhythmia. Doubt seizure activity due to lack of confusion, seizure activity.
Telemetry > 48 hours no arrhythmias, some Premature Atrial beats ( was reviewed with staff combat information center officer on tele).
Patient reported that each syncopal episode lasted few seconds and he woke up and was completely coherent and lucid.
-Flomax was previously discontinued
-Given IVFs .
-Follow-up on echocardiogram
-Use compression stockings.
-Monitor on Telemetry, no arrhythmias.
-Cortisol level was 15.3 -- discussed with on-call supervisor pipeline who mentioned that baseline cortisol of 15 makes adrenal insufficiency super unlikely and no need for ACTH stimulation test, appreciate supervisor pipeline's input
-No history of cardiac disease. Negative troponin. EKG, sinus rhythm with no acute ischemic changes.
-Stop HCTZ
Partially obstructing 4mm right UVJ stone as diagnosed by CT scan 04/04/24
Small bilateral nephroliths
Bilateral renal cysts
-Normal renal function. No renal colic at present time.
-Patient denied hematuria. History of prostate cancer.
-Follow-up with urologist Dr. Browning
-Strain Urine
Hx Left Parietal CVA s/p Left Carotid Endarterectomy
-Continue Aspirin
Essential Hypertension
-Hold HCTZ due to continued orthostatic hypotension
Add PRN hydralazine
Hyperlipidemia
-Continue atorvastatin
Depression
-Continue Paxil
Prostate CA
-Continue bicalutamide
Hx AAA Endovascular Repair
Hx NSCLC s/p LLL Wedge Resection
DVT proph:SCDs, Lovenox
Code Status: Full Code
Anticipated Discharge: 24 - 48 hours
Subjective/Interval History
-
Date of Service: April 08, 2024
Patient was not present in his room at the time of attempted patient encounter. Chart reviewed.
Objective Data
-
Vital Signs:
Vital Signs
Temp Pulse Resp BP Pulse Ox
97.9 F 82 18 145/92 94
04/08/24 03:02 04/08/24 03:02 04/08/24 03:02 04/08/24 03:02 04/08/24 03:02
I&O
04/07/24 04/08/24 04/09/24
06:59 06:59 06:59
Intake Total 720 / 720 1500 / 1500
Balance 720 / 720 1500 / 1500
[2024-04-08] MEDS: PAXIL 15 MG PO (07:51)
[2024-04-08] MEDS: NICODERM TRANSDERMAL 21 MG TRANSDERM (07:51)
[2024-04-08] MEDS: LIPITOR 80 MG PO (07:52)
[2024-04-08] MEDS: CASODEX 50 MG PO (07:52)
[2024-04-08] MEDS: ASPIR LOW (ENTERIC COATED) 81 MG PO (07:52)
[2024-04-08] MEDS: ORETIC 12.5 MG PO (07:52)
[2024-04-08 09:26] LABS: Cortisol, Random 15.3 ug/dl
--- NOTE | 2024-04-08 12:04 | CM ---
CM met with patient bedside, reports no needs to CM at this time. 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 CM will continue to follow for all discharge planning needs.
Plan; home no needs.
[2024-04-08] MEDS: LOVENOX 40 MG SC (17:06)
[2024-04-08] MEDS: SENOKOT-S 1 TABLET PO (20:02)
[2024-04-08] MEDS: MIRALAX 17 GRAMS PO (20:02)
[2024-04-08] MEDS: TYLENOL 650 MG PO (23:57)
[2024-04-09 03:35] VITALS: BP 135/96
[2024-04-09 07:00] VITALS: BP 114/111
[2024-04-09] MEDS: NICODERM TRANSDERMAL 21 MG TRANSDERM (08:00)
[2024-04-09] MEDS: MIRALAX 17 GRAMS PO (08:00)
[2024-04-09] MEDS: LIPITOR 80 MG PO (08:00)
[2024-04-09] MEDS: CASODEX 50 MG PO (08:00)
[2024-04-09] MEDS: PAXIL 15 MG PO (08:01)
[2024-04-09] MEDS: ASPIR LOW (ENTERIC COATED) 81 MG PO (08:02)
[2024-04-09] MEDS: SENOKOT-S 1 TABLET PO (08:02)
[2024-04-09] MEDS: DULCOLAX 10 MG RECTAL (11:04)
--- NOTE | 2024-04-09 12:14 | CM ---
CM met with patient bedside, confirmed with Hospitalist patient is for discharge today. IMM reviewed, signed, placed in chart. CM will continue to follow for all discharge planning needs.
Plan; home no needs.
--- NOTE | 2024-04-09 13:25 | W.PN.HOSP.TC ---
Today's Communication/Plan
-
Discharge today
Assessment / Plan
Assessment / Plan
73 years old male who experienced 2 syncopal episodes, each lasted for a few seconds with no confusion, seizure activity or urinary incontinence. Patient presented to the emergency room recently for renal colic was given Flomax. Patient was
noticeably having postural hypotension in the ER. Patient denied nausea, diarrhea or vomiting. He takes diuretic for blood pressure management. No known heart disease. No chest pain. Troponins negative. EKG no acute ischemic changes.
Physical Exam
General: Not in acute distress
HEENT: Normocephalic
Respiratory: Clear to Auscultation Bilaterally
Cardiac: S1/S2 and Regular Rhythm
GI: Soft and Non Tender. Positive bowel sounds.
Musculoskeletal: No Cyanosis and No Edema
Skin: Warm and Dry
Neuro: Awake, Alert, Oriented and Nonfocal/grossly intact
Psych: Calm

Echocardiogram, as per economic development manager's report
CONCLUSIONS
Normal biventricular size and systolic function without regional wall motion
abnormality. Estimated LVEF 55%.
Aortic sclerosis without stenosis.
Compared to 12/17/18: no significant change.

73 male with orthostatic hypotension/syncope. Had IVF. Tubigrip B/L are ordered. No arrhythmias on tele. Plan for echo Monday, likely dc. Serum cortione in am. He saw Nicolás in 2019, he will make an appointment. Called but no answer.
Syncope likely secondary to Orthostatic Hypotension, noted in hospital
Differential Diagnosis includes medication-induced orthostatic hypotension, vasovagal/cardiac arrhythmia. Doubt seizure activity due to lack of confusion, seizure activity.
-Patient reported that each syncopal episode lasted few seconds and he woke up and was completely coherent and lucid.
-Flomax was previously discontinued
-Stop HCTZ
-Echocardiogram result above
-Use compression stockings.
-Telemetry okay
-Cortisol level was 15.3 -- discussed with on-call electronic prepress system operator who mentioned that baseline cortisol of 15 makes adrenal insufficiency super unlikely and no need for ACTH stimulation test, appreciate electronic prepress system operator's input
-No history of cardiac disease. Negative troponin. EKG, sinus rhythm with no acute ischemic changes.
Partially obstructing 4mm right UVJ stone as diagnosed by CT scan 04/04/24
Small bilateral nephroliths
Bilateral renal cysts
-Normal renal function. No renal colic at present time.
-Patient denied hematuria. History of prostate cancer.
-Follow-up with urologist Dr. Browning who will re-image as outpatient should patient not recover a stone
-Strain Urine
History of Left Parietal CVA s/p Left Carotid Endarterectomy
-Continue Aspirin
Essential Hypertension
-Hold HCTZ due to continued orthostatic hypotension
Hyperlipidemia
-Continue atorvastatin
Depression
-Continue Paxil
Prostate CA
-Continue bicalutamide
Hx AAA Endovascular Repair
Hx NSCLC s/p LLL Wedge Resection
DVT proph:SCDs, Lovenox
Code Status: Full Code
More than 30 minutes spent in discharge including
Final examination of the patient
Summarizing hospital stay
Instructions for continuing care to all relevant caregivers
Preparation of discharge records, prescriptions, and referral forms
Total time spent (in minutes): 39
Anticipated Discharge: Today
Subjective/Interval History
-
Date of Service: April 09, 2024
Patient was seen and examined. He denied any new symptoms or complaints.
Objective Data
-
Vital Signs:
Vital Signs
Temp Pulse Resp BP Pulse Ox
97.5 F 87 18 114/111 98
04/09/24 07:00 04/09/24 07:00 04/09/24 07:00 04/09/24 07:00 04/09/24 09:05
I&O
04/08/24 04/09/24 04/10/24
06:59 06:59 06:59
Intake Total 1500 / 1500 1740 / 1740
Balance 1500 / 1500 1740 / 1740
--- NOTE | 2024-04-09 13:50 | W.DS.TRANS ---
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
-
Discharge Instructions:
Discharge Diagnosis/Procedures Syncope likely secondary to Orthostatic
Hypotension
Partially obstructing 4mm right UVJ stone as
diagnosed by CT scan 04/04/24
Small bilateral nephroliths
Bilateral renal cysts
History of Left Parietal CVA s/p Left Carotid
Endarterectomy
Essential Hypertension
Hyperlipidemia
Depression
Prostate Cancer
History of AAA Endovascular Repair
History NSCLC cancer s/p LLL Wedge Resection
Echocardiogram, as per donor relations coordinator's report
CONCLUSIONS
Normal biventricular size and systolic function
without regional wall motion
abnormality. Estimated LVEF 55%.
Aortic sclerosis without stenosis.
Compared to 12/17/18: no significant change.
Diet Regular
Activity As tolerated
Driving Restrictions Not until seen by your Dr
Instructions: Orthostatic hypotension
Stand-Alone Forms:
Changes to Home Medications: Yes
Discharge Medications:
DC Medications w/original date entered in [facility]
paroxetine HCl 30 mg tablet 15 mg PO DAILY Mental Health/Anxiety 10/20/15
ascorbic acid (vitamin C) 500 mg tablet (Vitamin C) 500 mg PO DAILY Supplement 04/04/24
aspirin 81 mg tablet,delayed release 81 mg PO DAILY Blood Clot Prevention/Tx 04/04/24
bicalutamide 50 mg tablet 50 mg PO DAILY Cancer 04/04/24
nicotine (polacrilex) 4 mg gum 4 mg buccal Q2HPRN PRN SMOKING 04/04/24
nicotine 21 mg/24 hr daily transdermal patch 1 patch transdermal DAILY Smoking Cessation 04/04/24
therapeutic multivitamin 1 tab PO DAILY Supplement 04/04/24
atorvastatin 80 mg PO DAILY High Cholesterol 04/06/24
tamsulosin 0.4 mg capsule (Flomax) 0.4 mg PO HS Urinary Issue 04/07/24
polyethylene glycol 3350 17 gram oral powder packet (HealthyLax) 17 g PO DAILY #30 ea 04/09/24
sennosides 8.6 mg-docusate sodium 50 mg tablet (Stool Softener-Laxative) 1 tab PO BID #10 tabs 04/09/24
Home Medication Changes
HealthyLax and Sennosides-Docusate Sodium are new medications.
Hydrochlorothiazide and Advil have been stopped.
Pending Results: No
Total time spent discharging patient (in min): 39
== END 2024-04-09 14:49 | disposition home or self-care (01) | DRG 312 ==
LOC: 4 WEST ACU 18:20
PROVIDERS: Emergency Medicine; Physician Assistant; Physician Assistant Medical; ADMITTING PHYSICIAN Internal Medicine; ATTENDING PHYSICIAN Hospitalist; CONSULT PHYSICIAN Specialist; EMERGENCY PHYSICIAN Emergency Medicine; FAMILY PHYSICIAN Internal Medicine
DX: I95.1 Orthostatic hypotension (principal); N13.2 Hydronephrosis with renal and ureteral calculous obstruction; I10 Essential (primary) hypertension; F32.A Depression, unspecified; E78.00 Pure hypercholesterolemia, unspecified; C61 Malignant neoplasm of prostate; Z86.73 Personal history of transient ischemic attack (TIA), and cerebral infarction without residual deficits; Z85.118 Personal history of other malignant neoplasm of bronchus and lung
CPT/HCPCS: 70450; 80048; 80053; 82533; 82962; 84484; 85025; 85027; 93005; 93306; 96360; 97116; 97162; 97166; 99285

== ENCOUNTER → 2024-04-22 15:21 | Outpatient (REF) | payer OTHER, SELFPAY | LOC: RAD 15:21 | PROVIDERS: ATTENDING PHYSICIAN Specialist; FAMILY PHYSICIAN Internal Medicine | DX: N20.1 Calculus of ureter (principal); N13.30 Unspecified hydronephrosis | CPT/HCPCS: 76770 ==

== ENCOUNTER → 2024-06-05 11:50 | Outpatient (REF) | payer OTHER, SELFPAY | LOC: HWRAD 11:50 | PROVIDERS: ATTENDING PHYSICIAN Internal Medicine | DX: S06.0XAA Concussion with loss of consciousness status unknown, initial encounter (principal); W19.XXXA Unspecified fall, initial encounter; R26.89 Other abnormalities of gait and mobility; G44.89 Other headache syndrome; I10 Essential (primary) hypertension | CPT/HCPCS: 70450 ==

== ENCOUNTER → 2024-06-11 11:09 | Outpatient (REF) | payer OTHER, SELFPAY ==
[2024-06-11 16:13] LABS: PSA, Total - Diagnostic 1.43 ng/ml (0.0-4.0)
== END ==
LOC: HWLAB 11:09
PROVIDERS: ATTENDING PHYSICIAN Specialist; FAMILY PHYSICIAN Internal Medicine
DX: C61 Malignant neoplasm of prostate (principal); N62 Hypertrophy of breast
CPT/HCPCS: 36415; 84153

== ENCOUNTER → 2024-07-16 20:10 | Outpatient (REF) | payer OTHER, SELFPAY | LOC: MRI 3T 20:10 | PROVIDERS: ATTENDING PHYSICIAN Radiology Radiation Oncology; FAMILY PHYSICIAN Internal Medicine | DX: C61 Malignant neoplasm of prostate (principal) | CPT/HCPCS: 72197; A9575 ==

== ENCOUNTER 2024-08-05 07:25 | Day surgery (SDC) | payer OTHER, SELFPAY | END 2024-08-05 15:22 | disposition home or self-care (01) | LOC: GI 07:25 | PROVIDERS: ATTENDING PHYSICIAN Internal Medicine | DX: Z12.11 Encounter for screening for malignant neoplasm of colon (principal); K22.70 Barrett's esophagus without dysplasia; K29.80 Duodenitis without bleeding; K31.811 Angiodysplasia of stomach and duodenum with bleeding; K29.70 Gastritis, unspecified, without bleeding; D12.4 Benign neoplasm of descending colon; Z86.0100 Personal history of colon polyps, unspecified; Z53.8 Procedure and treatment not carried out for other reasons | CPT/HCPCS: 45385; 43239; 88305; 88342 ==

== ENCOUNTER 2024-08-06 06:24 | Day surgery (SDC) | payer OTHER, SELFPAY | END 2024-08-06 15:49 | disposition home or self-care (01) | LOC: GI 06:24 | PROVIDERS: ATTENDING PHYSICIAN Internal Medicine Gastroenterology | DX: Z12.11 Encounter for screening for malignant neoplasm of colon (principal); D12.2 Benign neoplasm of ascending colon; D12.3 Benign neoplasm of transverse colon; Z86.0100 Personal history of colon polyps, unspecified; K64.8 Other hemorrhoids; K57.30 Diverticulosis of large intestine without perforation or abscess without bleeding | CPT/HCPCS: 45385; 88305 ==

== ENCOUNTER → 2024-11-25 13:49 | Outpatient (REF) | payer OTHER, SELFPAY ==
[2024-11-25 16:48] LABS: PSA, Total - Diagnostic 1.71 ng/ml (0.0-4.0)
== END ==
LOC: HWLAB 13:49
PROVIDERS: ATTENDING PHYSICIAN Specialist; FAMILY PHYSICIAN Internal Medicine
DX: C61 Malignant neoplasm of prostate (principal); N62 Hypertrophy of breast
CPT/HCPCS: 36415; 84153

== ENCOUNTER → 2024-12-13 11:57 | Outpatient (REF) | payer OTHER, SELFPAY ==
[2024-12-13 16:47] LABS: PSA, Total - Screen 1.51 ng/ml (0.0-4.0)
== END ==
LOC: HWLAB 11:57
PROVIDERS: ATTENDING PHYSICIAN Family Medicine Geriatric Medicine; FAMILY PHYSICIAN Internal Medicine
DX: C61 Malignant neoplasm of prostate (principal); Z12.5 Encounter for screening for malignant neoplasm of prostate
CPT/HCPCS: 36415; G0103

== ENCOUNTER → 2025-02-17 12:42 | Outpatient (REF) | payer OTHER, SELFPAY ==
[2025-02-17 16:26] LABS: PSA, Total - Diagnostic 1.04 ng/ml (0.0-4.0)
== END ==
LOC: HWLAB 12:42
PROVIDERS: ATTENDING PHYSICIAN Family Medicine Geriatric Medicine; FAMILY PHYSICIAN Internal Medicine
DX: C61 Malignant neoplasm of prostate (principal)
CPT/HCPCS: 36415; 84153

== ENCOUNTER → 2025-04-03 09:57 | Outpatient (REF) | payer OTHER, SELFPAY ==
[2025-04-03 12:16] LABS: Hematocrit 49.6 % (39.0-52.0); Hemoglobin 16.6 g/dL (13.0-18.0); Mean Corp Hgb Conc. 33.5 g/dL (33.0-37.0); Mean Corpuscular Volume 91.0 fL (80.0-94.0); Nucleated Red Blood Cells % 0 % (-); Platelet Count 234 10^3/uL (130-400); Red Cell Dist. Width 13.6 % (11.5-14.5)
[2025-04-03 12:32] LABS: ALT (SGPT) 22 U/L (0-50); AST (SGOT) 23 U/L (17-59); Albumin 4.4 g/dl (3.5-5.0); Alkaline Phosphatase 67 U/L (38-126); Blood Urea Nitrogen 11 mg/dl (9-20); Calcium 9.2 mg/dl (8.4-10.2); Carbon Dioxide 30 mmol/L (22-30); Chloride 103 mmol/L (98-107); Glucose 119 mg/dl (70-99); HDL Cholesterol 39 mg/dl; LDL Cholesterol, Calculated 49 mg/dl; Potassium 4.3 mmol/L (3.5-5.1); Sodium 140 mmol/L (135-145); Total Protein 6.9 g/dl (6.3-8.2); Very Low Density Lipoprotein 21 mg/dl (0-30); eGFR > 60.00
== END ==
LOC: HWLAB 09:57
PROVIDERS: ATTENDING PHYSICIAN Internal Medicine
DX: I10 Essential (primary) hypertension (principal)
CPT/HCPCS: 36415; 80053; 80061; 85025

== ENCOUNTER → 2025-04-04 13:23 | Outpatient (REF) | payer OTHER, SELFPAY | LOC: HWRAD 13:23 | PROVIDERS: ATTENDING PHYSICIAN Family Medicine Geriatric Medicine; FAMILY PHYSICIAN Internal Medicine | DX: F17.210 Nicotine dependence, cigarettes, uncomplicated (principal) | CPT/HCPCS: 71271 ==

== ENCOUNTER 2025-04-29 14:16 | Emergency (ER) | payer OTHER, SELFPAY ==
[2025-04-29 14:22] VITALS: BP 129/84
[2025-04-29 14:38] LABS: Hematocrit 51.0 % (39.0-52.0); Hemoglobin 17.3 g/dL (13.0-18.0); Mean Corp Hgb Conc. 33.9 g/dL (33.0-37.0); Mean Corpuscular Volume 89.2 fL (80.0-94.0); Nucleated Red Blood Cells % 0 % (-); Platelet Count 229 10^3/uL (130-400); Red Cell Dist. Width 13.2 % (11.5-14.5)
[2025-04-29 14:56] LABS: ALT (SGPT) 26 U/L (0-50); AST (SGOT) 24 U/L (17-59); Albumin 4.7 g/dl (3.5-5.0); Alkaline Phosphatase 88 U/L (38-126); Blood Urea Nitrogen 20 mg/dl (9-20); Calcium 10.0 mg/dl (8.4-10.2); Carbon Dioxide 28 mmol/L (22-30); Chloride 103 mmol/L (98-107); Glucose 98 mg/dl (70-99); Potassium 4.3 mmol/L (3.5-5.1); Sodium 138 mmol/L (135-145); Total Protein 7.6 g/dl (6.3-8.2); eGFR > 60.00
[2025-04-29 14:57] LABS: INR 0.98; PT 13.3 Sec (11.4-14.6)
[2025-04-29 15:07] LABS: Troponin I < 0.012 ng/ml
[2025-04-29 16:10] VITALS: BMI 26.3
[2025-04-29 16:15] VITALS: BP 163/104
[2025-04-29 16:17] VITALS: BP 161/99
--- NOTE | 2025-04-29 16:20 | ED.GENMED ---
History of Present Illness
General
Chief Complaint: Cardiac Symptoms
Source: patient
Exam Limitations: none
Time Seen by Provider: 04/29/25 16:19
Nursing documentation reviewed up to this point in time: agreed with
History of Present Illness
History of Present Illness:
74 yo male with h/o COPD, LLL thoracotomy for CA, AAA, HTN, HLD, Prostate CA, presents with left-sided chest pain. The pain began approximately four months ago and occurs daily and has been more persistent in past 2 weeks. Initially, the pain was
related to lying flat on his back, occurring in left upper back and radiating through to left side chest. Usully relieved by turning onto his right side or sitting up but in recent days, it has persisted even after sitting up. The pain is described
as pressure-like, progressing to a stabbing sensation, and starts in the back before radiating to the front. There is no associated sweating, nausea, vomiting, abdominal pain, or shortness of breath. The patient has taken nothing for the pain. The
pain has not been provoked by activities such as raising arms or moving them, and there has been no recent overexertion like yard work.
Past History
Past History
ED Past Medical History: Cancer (Melanoma. Non-small cell CA), GERD (Duodenal ulcer), HTN, Hypercholesterolemia and Other (AAA)
ED Past Surgical History: Other (Carotid endarterectomy. AAA stent. Kidney surgery. Thoracotomy)
Social History
Tobacco: Former smoker (Quit 2 weeks ago)
Alcohol: Occasional
Drug: None
Personal:
Living: with family
Review of Systems
Review of Systems
Allergies reviewed?: Yes
All Other Systems: ROS reviewed and negative except as documented in HPI and ROS
Respiratory: Denies trouble breathing
Cardiac: Reports chest pain; Denies diaphoresis or palpitations
Musculoskeletal: Reports back pain (left upper back pain)
Phy Exam
Physical Exam
Physical Exam:
GENERAL: No acute distress. A&Ox3.
CONSTITUTIONAL: Afebrile.
EYES: clear, conjunctivae normal
ENMT: moist mucus membranes, Pharynx nl
RESPIRATORY: Regular respirations, nonlabored, lungs clear.
CARDIOVASCULAR: Regular rate and rhythm, no murmurs, no rubs.
GI: Soft, nontender, normal BS
MUSCULOSKELETAL: Moves with ease. Well perfused.
SKIN: Warm, dry, pink
PSYCH: Normal mood and affect. Well kept, interactive and appropriate
NEUROLOGIC: Awake, alert and oriented. No focal neurological deficits
Course
Orders/Labs/Results
Orders:
Orders
04/29/25 14:17
ECG [Electrocardiogram (*1)] Urgent
Reason for Study: Chest Pain
EKG- Treatment ONCE
04/29/25 14:28
Complete Blood Count/With Diff Urgent
Comprehensive Metabolic Panel Urgent
Prothrombin Time Urgent
Troponin I Urgent
04/29/25 16:20
CR Chest - 2 Views Urgent
Comment:
Reason For Exam: chest pain
Abnormal Lab Results
04/29/25
14:28
Lymphocytes % 18.6 L %
(20.5-51.1)
04/29/25 14:28
04/29/25 14:28
Vital Signs
Initial and Last Documented VS:
Initial Vital Signs
Temp Pulse Resp BP Pulse Ox
97.8 F 97 18 129/84 97
04/29/25 14:22 04/29/25 14:22 04/29/25 14:22 04/29/25 14:22 04/29/25 14:22
Last Documented Vital Signs
Temp Pulse Resp BP Pulse Ox
97.8 F 85 21 154/103 97
04/29/25 14:22 04/29/25 16:34 04/29/25 16:34 04/29/25 17:33 04/29/25 17:35
MDM/Problems Addressed
Differential Diagnosis Includes:
Musculoskeletal pain, GERD, costochondritis, MA, pericarditis
MDM/Problems Addressed:
74 yo male with h/o COPD, LLL thoracotomy for CA, AAA, HTN, HLD, Prostate CA, presents with left-sided chest pain. The pain began approximately four months ago and occurs daily and has been more persistent in past 2 weeks. Initially, the pain was
related to lying flat on his back, occurring in left upper back and radiating through to left side chest. Usully relieved by turning onto his right side or sitting up but in recent days, it has persisted even after sitting up. The pain is described
as pressure-like, progressing to a stabbing sensation, and starts in the back before radiating to the front. There is no associated sweating, nausea, vomiting, abdominal pain, or shortness of breath. The patient has taken nothing for the pain. The
pain has not been provoked by activities such as raising arms or moving them, and there has been no recent overexertion like yard work.
EKG: NSR
CBC, CMP normal
Troponin normal
CXR:NAD
5:30 PM:
Blood pressure 154/103. Patient states he is taking his blood pressure medication as ordered, he takes his blood pressure daily at home and it is usually normal. This may be white coat. He will continue to monitor his blood pressure at home and
discussed with cardiology if it remains high
In to re evaluate: Patient has a definite trigger point in the left upper thoracic region. Palpation at this area immediately reproduces his symptoms.
Flexeril HS rx sent to his pharmacy
Because he is had this atypical chest pain with it, he has been referred to the cardiac hotline
Stable for discharge
*Pulse Oximetry
SaO2: 96
Oxygen Mode of Delivery: Room air
Patient hypoxic: no
*EKG
EKG Intrepretation Date: 04/29/25
Interpretation: normal
Heart Rate: 93
Rate: normal
Rhythm: sinus
[place]: normal axis
Interval: normal interval
QRS Pattern: normal QRS
Ischemia: no ischemia
*Critical Care Note
Total Time (30-74mins, 75-104mins- exclusive of procedures): Not Applicable
ED Attending Note
-
Portions of this chart may have been created with voice recognition software.� Occasional wrong word or��sound alike� substitutions may have occurred due to the inherent limitations of voice recognition software.
Discharge Plan
Departure
Patient Disposition: Home (Routine Discharge)
Date of Disposition: 04/29/25
Time of Disposition: 17:31
Patient with high blood pressure during this ER visit?: No
Condition: Good
Discharge Problem:
Trigger point of thoracic region, Atypical chest pain
Instructions: Muscle spasm - ED discharge instructions, Chest Pain CBC Follow Up, BLOOD PRESSURE
Prescriptions:
New
cyclobenzaprine 10 mg tablet
10 mg PO HS PRN (Reason: back spasms) Qty: 10 0RF
No Action
paroxetine HCl 30 MG tablet
15 mg PO DAILY
bicalutamide 50 mg Tablet
50 mg PO DAILY
therapeutic multivitamin Tablet
1 tab PO DAILY
aspirin 81 mg Tablet,Delayed Release (Dr/Ec)
81 mg PO DAILY
ascorbic acid (vitamin C) [Vitamin C] 500 mg Tablet
500 mg PO DAILY
nicotine (polacrilex) 4 mg Gum
4 mg BUCCAL Q2HPRN PRN (Reason: SMOKING)
nicotine 21 mg/24 hr Patch 24 Hour
1 patch TRANSDERMAL DAILY
atorvastatin
80 mg PO DAILY
polyethylene glycol 3350 [HealthyLax] 17 gram Powder In Packet
17 g PO DAILY Qty: 30 0RF
sennosides-docusate sodium [Stool Softener-Laxative] 8.6-50 mg Tablet
1 tab PO BID Qty: 10 0RF
amlodipine 2.5 mg tablet
2.5 mg PO DAILY Qty: 14 1RF
Referrals:
Roge Monzon MD [Active, Cardiology] - Next open appointment
Yaw Little MD [Family Provider, Internal Medicine]
Activity Restrictions/Additional Instructions:
As we discussed, your workup here today shows nothing worrisome.
You do have a 'trigger point' muscle spasm in the right upper back. Gentle massage to this area several times a day, allow the warm shower water to run over the area, use a heating pad, take ibuprofen 400 mg every 6 hours as needed for pain
Because you have chest pain, I sent your information to the cardiac hotline and someone should be calling you within the next 2 days to set up an appointment for more thorough cardiac workup.
Return here immediately for worsening chest pain, or feeling worse in any way.
Take your blood pressure at home and if it remains high, discuss with your beam saw operator
Interventions
Interventions:
*Risk Screen - Suicide Last Done: 04/29/25 14:24
*General Assessment Last Done: 04/29/25 14:24
*Neglect/Abuse Screening Last Done: 04/29/25 14:24
*ED- Fall Risk Assessment Last Done: 04/29/25 16:10
*ED COVID-19 Vaccine History Last Done: 04/29/25 14:24
*Nursing Disposition Last Done: 04/29/25 17:52
ED- Pulmonary Assessment Last Done: 04/29/25 16:11
ED- Cardiac Assessment Last Done: 04/29/25 16:11
Discharge Date and Time
Discharge Date/Time: 04/29/25 17:53
Print Language: SOMALI
[2025-04-29 17:33] VITALS: BP 154/103
== END 2025-04-29 17:53 | disposition home or self-care (01) ==
LOC: EMR 14:16
PROVIDERS: EMERGENCY PHYSICIAN Emergency Medicine; FAMILY PHYSICIAN Internal Medicine
DX: M54.6 Pain in thoracic spine (principal); R07.89 Other chest pain; I10 Essential (primary) hypertension; E78.00 Pure hypercholesterolemia, unspecified; J44.9 Chronic obstructive pulmonary disease, unspecified; K21.9 Gastro-esophageal reflux disease without esophagitis; Z85.46 Personal history of malignant neoplasm of prostate; Z85.118 Personal history of other malignant neoplasm of bronchus and lung; Z85.820 Personal history of malignant melanoma of skin; Z87.891 Personal history of nicotine dependence
CPT/HCPCS: 99284; 71046; 80053; 84484; 85025; 85610; 93005